=== PATIENT | female | born 1930 | race Caucasian/White ===

== ENCOUNTER 2016-12-26 20:38 | Emergency (ER) | payer MEDICARE ==
[~2016-12-26] VITALS: Ht 152.4 cm; Wt 79.4 kg
[2016-12-26] MEDS ORDERED: AMLODIPINE BESYL5 MG PO (21:05)
[2016-12-26] MEDS ORDERED: NATURE'S BLEND F1 MG PO (21:05)
[2016-12-26] MEDS ORDERED: ISOSORBIDE30 MG PO (21:06)
[2016-12-26] MEDS ORDERED: LOPRESSOR50 M1 PO (21:06)
[2016-12-26] MEDS ORDERED: PRILOSEC20 M1 PO (21:07)
[2016-12-26] MEDS ORDERED: VITAMIN D1000 IU PO (21:08)
[2016-12-26] MEDS ORDERED: TRAMADOL HCL50 MG PO (21:08)
[2016-12-26] MEDS ORDERED: WARFARIN SOD5 MG PO (21:08)
[2016-12-26 21:12] LABS: BASO % 0.5 % (0.0-1.0); EOS # 0.1 10*3/uL (0.0-0.4); EOS % 1.8 % (1.0-4.0); HEMATOCRIT 36.2 % (37.0-47.0); HEMOGLOBIN 11.4 g/dl (12.0-16.0); LYMPH # 1.7 10*3/uL (1.3-4.4); LYMPH % 27.9 % (27.0-41.0); MEAN CELL VOLUME 88.7 fl (81.0-99.0); MEAN CORPUSCULAR HGB 27.9 pg (27.0-31.0); MEAN CORPUSCULAR HGB CONC 31.5 g/dl (33.0-37.0); MEAN PLATELET VOLUME 8.9 fl (9.6-12.3); MONO # 0.3 10*3/uL (0.1-1.0); MONO % 5.2 % (3.0-9.0); NEUT # 3.9 10*3/uL (2.3-7.9); PLATELET COUNT AUTOMATED 192 10*3/uL (130-400); RED BLOOD COUNT 4.08 10*6/uL (4.10-5.10); RED CELL DISTRI WIDTH 13.8 % (0-14.5); WHITE BLOOD COUNT 6.2 10*3/uL (4.8-10.8)
[2016-12-26 21:29] LABS: ALBUMIN 3.3 gm/dl (3.1-4.5); BILIRUBIN, TOTAL 0.6 mg/dl (0.2-1.0); INTERNATIONAL NORM RATIO 2.3 (2.0-3.5); POTASSIUM 3.9 mmol/L (3.5-5.1); PROTHROMBIN TIME 25.7 SECONDS (9.0-12.4); TOTAL PROTEIN 7.3 gm/dL (6.4-8.2)
[2016-12-26 23:01] LABS: BILIRUBIN NEGATIVE (NEGATIVE); BLOOD 2+ (NEGATIVE); CLARITY SL CLOUDY (CLEAR); COLOR YELLOW (YELLOW); GLUCOSE NEGATIVE (NEGATIVE); KETONE NEGATIVE (NEGATIVE); LEUKO ESTERASE 1+ (NEGATIVE); NITRITE NEGATIVE (NEGATIVE); PROTEIN NEGATIVE (NEGATIVE); UROBILINOGEN 0.2 E.U./dl (0.2-1.0)
[2016-12-26 23:07] LABS: BACTERIA 2+; WBC 16-20 wbc/hpf (0-5); YEAST TRACE
== END 2016-12-27 00:05 | disposition home or self-care (01) ==
LOC: ED 20:38
PROVIDERS: Emergency Medicine
DX: S23.3XXA Sprain of ligaments of thoracic spine, initial encounter (principal); S09.90XA Unspecified injury of head, initial encounter; Z88.6 Allergy status to analgesic agent; Z79.899 Other long term (current) drug therapy; Z79.02 Long term (current) use of antithrombotics/antiplatelets; W18.39XA Other fall on same level, initial encounter; Y93.89 Activity, other specified; Y92.89 Other specified places as the place of occurrence of the external cause; Y99.9 Unspecified external cause status